=== PATIENT | male | born 1940 | race Caucasian/White ===

== ENCOUNTER 2018-10-31 20:03 | Observation (INO) ==
--- NOTE | 2018-10-31 20:48 | Emergency Department Note ---
Disposition Clinical Impression: Altered mental status Qualifiers: Altered mental status type: disorientation Qualified Code(s): R41.0 - Disorientation, unspecified UTI (urinary tract infection) Qualifiers: Urinary tract infection type: acute cystitis Hematuria presence: with hematuria Qualified Code(s): N30.01 - Acute cystitis with hematuria Disposition: Admitted As Inpatient Condition: Undetermined Forms: ED Satisfaction Letter Time of Disposition: 22:11 Altered Mental Status HPI - General Chief Complaint: ED Altered Mental Status Stated Complaint: altered mental status Time Seen by Provider: 10/31/18 20:08 Source: patient, EMS Mode of arrival: EMS Limitations: altered mental status Nursing Notes Reviewed: Yes Vital Signs Reviewed: Yes - History of Present Illness HPI Narrative: 78-year-old male arrives to the emergency department after being found wandering down [address] [facility]. Apparently the patient was going to see his recently in [place] and began walking down from [place]. The patient park his car somewhere and was found wandering. An elderly missing persons report was filed roughly 24 hours ago and the patient was found by law enforcement. The patient denies any specific complaints other than some burning when he urinates. The patient apparently self catheterizes and has been apparently reusing Cee catheters. The family is concerned about infection on him. In no obvious signs of trauma is a very poor historian and is only alert to person. Patient denies any other complaints at this time. He is resting comfortably in the room. - Related Data Allergies Allergy/AdvReac Type Severity Reaction Status Date / Time No Known Allergies Allergy Verified 10/31/18 20:12 All systems ED: reviewed and negative except as stated. Constitutional: Denies: fever, chills, weakness ENT ED: Denies: dysphagia Cardiovascular: Denies: chest pain Respiratory: Denies: dyspnea Gastrointestinal: Denies: abdominal pain, nausea, vomiting, diarrhea, constipation Genitourinary: Reports: dysuria, frequency. Denies: urgency, hematuria Musculoskeletal: Denies: back pain Integumentary: Denies: rash Neurological: Reports: confusion. Denies: headache Past Medical History - Past Medical History Attestation: Yes The following information was validated with the patient. Source: patient, old records reviewed Medical history: Reports: other Surgical history: Reports: non-contributory Psychiatric history: Reports: no psych history - Social History Smoking Status: Never smoker Smokeless Tobacco Status: No Alcohol use: Reports: none Drug use: Reports: none Physical Exam - General Limitations: altered mental status General appearance: alert, in no apparent distress - Head Head exam: atraumatic, normocephalic, normal inspection - Eye Eye exam: Present: normal appearance, PERRL, EOMI - ENT ENT exam: normal exam, normal oropharynx, mucous membranes moist - Neck Neck exam: Present: normal inspection, full ROM, trachea midline - Chest Chest inspection: Present: normal inspection, symmetric chest wall rise - Respiratory Respiratory exam: Present: normal lung sounds bilaterally - Cardiovascular Cardiovascular exam: Present: regular rate, normal rhythm, normal heart sounds - Abdominal Exam Abdominal exam: Present: soft, Non-Tender. Absent: tenderness, distention, guarding, rebound, rigidity - Extremities Exam Extremities exam: Present: normal inspection, full ROM, normal capillary refill. Absent: tenderness, pedal edema - Back Exam Back exam: Present: normal inspection, full ROM. Absent: tenderness - Neurological Exam Neurological exam: Present: alert - Expanded Neurological Exam Patient oriented to: Present: person Speech: Present: fluid speech Cranial nerves: EOM function (II, III, IV, ): Normal, facial sensation (V): Normal, facial palsy (VII): Normal Motor strength - LUE: 4/5 Motor strength - RUE: 4/5 Motor strength - LLE: 4/5 Motor strength - RLE: 4/5 Sensory exam upper extremity: light touch: Normal Sensory exam lower extremity: light touch: Normal Coma Scale Eye Opening: Spontaneous Coma Scale Motor Response: Obeys Commands Coma Scale Verbal Response: Confused Coma Scale Total: 14 - Skin Skin exam: Present: warm, dry, intact, normal color Course Vital Signs Temperature 98.1 F 10/31/18 20:13 Pulse Rate 83 10/31/18 20:13 Respiratory Rate 18 10/31/18 20:13 Blood Pressure 175/71 10/31/18 20:13 O2 Sat by Pulse Oximetry 97 10/31/18 20:13 Temperature 98.1 F 10/31/18 20:13 Pulse Rate 83 10/31/18 20:13 Respiratory Rate 18 10/31/18 20:13 Blood Pressure 175/71 10/31/18 20:13 O2 Sat by Pulse Oximetry 97 10/31/18 20:13 Oxygen Delivery Oxygen Delivery Room Air Altered Mental Status - MDM Narrative Medical decision making narrative: Patient's workup in the emergency department demonstrates findings consistent with a urinary tract infection. Given the patient's alteration in mentation and urinary tract infection and feels though this is likely the source. The patient had blood cultures drawn and was started on IV Rocephin. His vital signs remain stable here in the emergency department. The patient does not meet any sepsis criteria. The patient has been reusing his catheters per family in the room and I feel as though this is the source of his urinary tract infection. The patient was accepted hospitals by Dr. Bullock. - Lab Data Lab results reviewed: Yes I reviewed the patient's lab results. Result diagrams: 10/31/18 21:09 10/31/18 21: Lab Results 10/31/18 10/31/18 10/31/18 Range/Units 21:00 21:09 21:09 WBC 5.7 (4.3-11.1) K/mcL RBC 3.60 L (4.19-5.50) M/mcL Hgb 11.0 L (12.9-16.9) g/dL Hct 33.3 L (37.5-50.1) % MCV 92.5 (83.0-100.0) fL MCH 30.6 (28.0-33.3) pg MCHC 33.0 (31.6-35.5) g/dL RDW 12.8 (11.5-14.5) % Plt Count 239 (140-400) K/mcL MPV 9.8 (9.4-12.4) fL Immature Gran % 0.4 (0-4) % Seg Neutrophils % 66.0 % Lymphocytes % 19.6 % Monocytes % 13.5 % Eosinophils % 0.0 % Basophils % 0.5 % Neutrophils # 3.7 (1.6-8.9) K/mcL Lymphocytes # 1.1 (0.6-4.6) K/mcL Monocytes # 0.8 (0.0-1.3) K/mcL Eosinophils # 0.0 (0.0-0.6) K/mcL Basophils # 0.0 (0.0-0.2) K/mcL Sodium 143 (136-145) mEq/L Potassium 4.0 (3.5-5.1) mEq/L Chloride 111 H (98-107) mEq/L Carbon Dioxide 24 (23-29) mEq/L BUN 28 H (8-23) mg/dL Creatinine 1.57 H (0.70-1.30) mg/dL Est GFR ( Amer) 52 L (> 60) Est GFR (Non-Af Amer) 43 L (> 60) BUN/Creatinine Ratio 18 (6-26) Glucose 80 (70-105) mg/dL Calculated Osmolality 300 (280-300) Calcium 9.0 (8.6-10.3) mg/dL Total Bilirubin 0.8 (0.3-1.0) mg/dL Direct Bilirubin 0.1 (0.0-0.2) mg/dL Indirect Bilirubin 0.7 (0.0-1.2) mg/dL AST 26 (13-39) Units/L ALT 13 (7-52) Units/L Alkaline Phosphatase 57 (34-104) Units/L Ammonia (16-53) mcmol/L Creatine Kinase 1013 H (30-223) Units/L Serum Total Protein 6.5 (6.4-8.9) g/dL Albumin 3.6 (3.5-5.7) g/dL Globulin 2.9 (2.4-3.5) g/dL Albumin/Globulin Ratio 1.2 (1.1-2.2) Urine Color Yellow (Yellow) Urine Clarity Turbid A (Clear) Urine pH 7.5 (5.0-8.0) pH Units Ur Specific [place] 1.014 (1.010-1.025) Urine Protein >=300 H (Neg-Trace) mg/dL Urine Glucose (UA) Normal (Normal) mg/dL Urine Ketones Trace H (Negative) mg/dL Urine Blood Small H (Negative) Urine Nitrite Negative (Negative) Urine Bilirubin Negative (Negative) Urine Urobilinogen Normal (Normal) mg/dL Ur Leukocyte Esterase Large H (Negative) Urine Microscopic RBC Present (0-3) per hpf Urine Microscopic WBC TNTC H (0-3) per hpf Ur Squamous Epith Cells Many H (None-Few) per lpf Urine Bacteria Many H (None-Few) per hpf Hyaline Casts None Seen (None-Few) per lpf Ur Culture Indicated? YES A (NO) Salicylates < 2.5 L (15.0-30.0) mg/dL Acetaminophen < 10 L (10-20) mcg/mL Ethyl Alcohol < 10 (Less than 10) mg/dL 10/31/18 Range/Units 21:09 WBC (4.3-11.1) K/mcL RBC (4.19-5.50) M/mcL Hgb (12.9-16.9) g/dL Hct (37.5-50.1) % MCV (83.0-100.0) fL MCH (28.0-33.3) pg MCHC (31.6-35.5) g/dL RDW (11.5-14.5) % Plt Count (140-400) K/mcL MPV (9.4-12.4) fL Immature Gran % (0-4) % Seg Neutrophils % % Lymphocytes % % Monocytes % % Eosinophils % % Basophils % % Neutrophils # (1.6-8.9) K/mcL Lymphocytes # (0.6-4.6) K/mcL Monocytes # (0.0-1.3) K/mcL Eosinophils # (0.0-0.6) K/mcL Basophils # (0.0-0.2) K/mcL Sodium (136-145) mEq/L Potassium (3.5-5.1) mEq/L Chloride (98-107) mEq/L Carbon Dioxide (23-29) mEq/L BUN (8-23) mg/dL Creatinine (0.70-1.30) mg/dL Est GFR ( Amer) (> 60) Est GFR (Non-Af Amer) (> 60) BUN/Creatinine Ratio (6-26) Glucose (70-105) mg/dL Calculated Osmolality (280-300) Calcium (8.6-10.3) mg/dL Total Bilirubin (0.3-1.0) mg/dL Direct Bilirubin (0.0-0.2) mg/dL Indirect Bilirubin (0.0-1.2) mg/dL AST (13-39) Units/L ALT (7-52) Units/L Alkaline Phosphatase (34-104) Units/L Ammonia 27 (16-53) mcmol/L Creatine Kinase (30-223) Units/L Serum Total Protein (6.4-8.9) g/dL Albumin (3.5-5.7) g/dL Globulin (2.4-3.5) g/dL Albumin/Globulin Ratio (1.1-2.2) Urine Color (Yellow) Urine Clarity (Clear) Urine pH (5.0-8.0) pH Units Ur Specific [place] (1.010-1.025) Urine Protein (Neg-Trace) mg/dL Urine Glucose (UA) (Normal) mg/dL Urine Ketones (Negative) mg/dL Urine Blood (Negative) Urine Nitrite (Negative) Urine Bilirubin (Negative) Urine Urobilinogen (Normal) mg/dL Ur Leukocyte Esterase (Negative) Urine Microscopic RBC (0-3) per hpf Urine Microscopic WBC (0-3) per hpf Ur Squamous Epith Cells (None-Few) per lpf Urine Bacteria (None-Few) per hpf Hyaline Casts (None-Few) per lpf Ur Culture Indicated? (NO) Salicylates (15.0-30.0) mg/dL Acetaminophen (10-20) mcg/mL Ethyl Alcohol (Less than 10) mg/dL - Radiology Data Radiology results reviewed: Yes I reviewed the patient's radiology results. Cervical Spine CT 10/31/18 20:08 IMPRESSION: No acute abnormality of the cervical spine. D/ / Haile Seo MD / Haile Seo MD Interpreting Provider: Haile Seo MD Chest X-Ray 10/31/18 20:08 IMPRESSION: No acute process. D/ / Rohith Beck MD / Rohith Beck MD Interpreting Provider: Rohith Beck MD Head CT 10/31/18 20:08 IMPRESSION: No acute intracranial abnormality. Generalized cerebral atrophy and chronic small vessel white matter ischemic changes. D/ / Haile Seo MD / Haile Seo MD Interpreting Provider: Haile Seo MD - EKG Data EKG attestation: Yes I reviewed and interpreted this EKG. EKG results narrative: Heart rate 80 beats for minute. Normal sinus rhythm. No ST elevation or ST depression noted. No acute changes noted. TPA Checklist - LKW: 3-4.5 hrs Add. Warnings/Precautions Patient/family understanding: The patient/family members have been counseled and understood the risk, benefit, and alternatives of treatment.
[2018-10-31 21:21] LABS: Basophils % 0.5 %; Hematocrit 33.3 % (37.5-50.1); Immature Granulocytes % 0.4 % (0-4); Lymphocytes # 1.1 K/mcL (0.6-4.6); Lymphocytes % 19.6 %; Mean Corpuscular Hemoglobin 30.6 pg (28.0-33.3); Mean Corpuscular Volume 92.5 fL (83.0-100.0); Mean Platelet Volume 9.8 fL (9.4-12.4); Monocytes # 0.8 K/mcL (0.0-1.3); Monocytes % 13.5 %; Neutrophils # 3.7 K/mcL (1.6-8.9); Platelet Count 239 K/mcL (140-400); Red Cell Distribution Width 12.8 % (11.5-14.5); White Blood Count 5.7 K/mcL (4.3-11.1)
[2018-10-31 21:32] LABS: Bilirubin,Urine Negative (Negative); Blood,Urine Small (Negative); Clarity,Urine Turbid (Clear); Color,Urine Yellow (Yellow); Glucose,Urine (UA) Normal (Normal); Ketones,Urine Trace mg/dL (Negative); Leukocyte Esterase,Urine Large (Negative); Nitrite,Urine Negative (Negative); PH,Urine 7.5 pH Units (5.0-8.0); Protein,Urine >=300 mg/dL (Neg-Trace); Specific Gravity,Urine 1.014 (1.010-1.025); Urobilinogen,Urine Normal (Normal)
[2018-10-31 21:34] LABS: Bacteria,Urine Many per hpf (None-Few); Squamous Epithelial Cell,Urine Many per lpf (None-Few); WBC,Urine TNTC per hpf (0-3)
[2018-10-31 21:41] LABS: Acetaminophen < 10 mcg/mL (10-20); Alanine Aminotransferase 13 Units/L (7-52); Albumin 3.6 g/dL (3.5-5.7); Albumin/Globulin Ratio 1.2 (1.1-2.2); Alkaline Phosphatase 57 Units/L (34-104); Aspartate Amino Transferase 26 Units/L (13-39); BUN/Creatinine Ratio 18 (6-26); Bilirubin,Direct 0.1 mg/dL (0.0-0.2); Bilirubin,Indirect 0.7 mg/dL (0.0-1.2); Bilirubin,Total 0.8 mg/dL (0.3-1.0); Blood Urea Nitrogen 28 mg/dL (8-23); Carbon Dioxide 24 mEq/L (23-29); Chloride 111 mEq/L (98-107); Creatine Kinase 1013 Units/L (30-223); Ethanol < 10 mg/dL (Less than 10); Globulin 2.9 g/dL (2.4-3.5); Glucose 80 mg/dL (70-105); Osmolality,Calculated 300 (280-300); Salicylate < 2.5 mg/dL (15.0-30.0); Sodium 143 mEq/L (136-145); Total Protein 6.5 g/dL (6.4-8.9); eGFR For African Americans 52 (> 60); eGFR For Non-African Americans 43 (> 60)
[2018-10-31] MEDS ORDERED: 0.9 % Sodium Chloride 1,000 ML IVC ONE (21:42)
[2018-10-31 21:52] LABS: Hyaline Casts,Urine None Seen per lpf (None-Few); RBC,Urine Present per hpf (0-3)
[2018-10-31] MEDS ORDERED: cefTRIAXone 1,000 MG in Water for inj. (sterile) 20 ML 10 ML IVP ONE (21:53)
[2018-10-31] MEDS ORDERED: Acetaminophen 325 MG TABLET PO PRN (22:36)
--- NOTE | 2018-10-31 23:17 | Internal Med History&Physical ---
Date of Encounter: 10/31/18 Time of Encounter: 23:15 Internal Medicine - H&P: HPI Chief complaint: AMS Admitted From: Home Plans for Post Hospital Care: Home History of present illness: Manny Buitrago is a 78 year old man who reports having BPH, hypertension and hyperlipidemia who resides at a seniors residence in [place] and was last seen by his family member there at 1430hrs yesterday then later on they were notified that he had left in his car. A missing persons report was filed. He apparently was found by law enforcement wandering the highway in [place] this evening. His car was abandoned somewhere on route and he kept on walking. It is unclear what his motive was or destination. His family members were contacted and they came in to see him here. He denies headaches, chest pain, and shortness of breath but is notably confused and cannot understand how he got here. Lab work revealed a creatinine of 1.57 (unknown baseline) and CK >1000. His imaging studies were unrevealing. He is admitted for observation. Vitals: Reviewed General: Well-appearing, NAD Skin: Warm, dry HEENT: Dry mucous membranes. No conjunctivae pallor. Neck: No lymphadenopathy. No JVD. No carotid bruits. No palpable thyroid. Chest: Normal thoracic expansion. Normal breath sounds. Clear to auscultation. Heart: Normal S1 & S2; rhythmic. No rubs or murmurs. Abdomen: Non-distended, soft and non-tender to palpation. No peritoneal reaction. Extremities: No clubbing, cyanosis or edema. No calf tenderness. Normal distal pulses. Neurological: Awake, alert and oriented to person. No focal deficits. Psych: Affect appropriate. Assessment/Plan 1. Altered mental status: No signs of ischemic infarct present. Seems to be undergoing bereavement for his and that may have a component to play; pathologic grief. He seems to be back to baseline mental status but is slowly coming to terms with what went on and gaining more understanding. 2. Rhabdomyolysis: Mild. Likely secondary to his prolonged walking over the past day. May have a component of PHILOMENA as well. Will provide IVF for rehydration. 3. BPH: The patient self-caths intermittently due to retention and frequently develops UTIs. His UA is positive and he really does not have lower urinary tracts symptoms however given the transient AMS, would be prudent to give a short 3 day course of abx for cystitis. 4. HTN: Unknown home medications. Will monitor. Past Med Surg Social Fam HX - Past Medical History Medical history: hyperlipidemia, hypertension, other Psychiatric history: no psych history - Past Surgical History Surgical History: non-contributory - Social History Smoking Status: Never smoker Smokeless Tobacco Status: No Alcohol use: none Drug use: none Internal Medicine - H&P: Meds Allergy/AdvReac Type Severity Reaction Status Date / Time No Known Allergies Allergy Verified 10/31/18 20:12 All Systems PM: A 10-system review of systems was performed and is negative for pertinent findings except as documented above in the HPI. Family history reviewed and found non-contributory. - Constitutional Vitals: Temp Pulse Resp BP Pulse Ox 98.1 F 83 18 175/71 97 10/31/18 20:13 10/31/18 20:13 10/31/18 20:13 10/31/18 20:13 10/31/18 20:13 Exam: . Internal Med - H&P Results - Labs CBC & Chem 7: 10/31/18 21:09 10/31/18 21:09 Labs: Short CBC 10/31/18 Range/Units 21:09 WBC 5.7 (4.3-11.1) K/mcL Hgb 11.0 L (12.9-16.9) g/dL Hct 33.3 L (37.5-50.1) % Plt Count 239 (140-400) K/mcL Neutrophils # 3.7 (1.6-8.9) K/mcL BMP 10/31/18 21:09 Sodium 143 Potassium 4.0 Chloride 111 H Carbon Dioxide 24 BUN 28 H Creatinine 1.57 H Glucose 80 Calcium 9.0 Liver Function 10/31/18 Range/Units 21:09 Total Bilirubin 0.8 (0.3-1.0) mg/dL Direct Bilirubin 0.1 (0.0-0.2) mg/dL AST 26 (13-39) Units/L ALT 13 (7-52) Units/L Alkaline Phosphatase 57 (34-104) Units/L Albumin 3.6 (3.5-5.7) g/dL Urine 10/31/18 Range/Units 21:00 Urine Color Yellow (Yellow) Urine Clarity Turbid A (Clear) Urine pH 7.5 (5.0-8.0) pH Units Ur Specific [place] 1.014 (1.010-1.025) Urine Protein >=300 H (Neg-Trace) mg/dL Urine Glucose (UA) Normal (Normal) mg/dL - Impressions ITS Impressions Cervical Spine CT 10/31/18 20:08 IMPRESSION: No acute abnormality of the cervical spine. D/ / Haile Seo MD / Haile Seo MD Interpreting Provider: Haile Seo MD Chest X-Ray 10/31/18 20:08 IMPRESSION: No acute process. D/ / Rohith Beck MD / Rohith Beck MD Interpreting Provider: Rohith Beck MD Head CT 10/31/18 20:08 IMPRESSION: No acute intracranial abnormality. Generalized cerebral atrophy and chronic small vessel white matter ischemic changes. D/ / Haile Seo MD / Haile Seo MD Interpreting Provider: Haile Seo MD - Time Spent With Patient Total time spent is greater than 50% in coordination of care (as documented) at patient's floor/unit and/or counseling patient: Greater than 35 minutes
[2018-10-31 23:18] LABS: INR 1.1; Prothrombin Time 12.7 Seconds (9.4-12.1)
[2018-11-01] MEDS: 0.9 % Sodium Chloride 1,000 ML IVC SCH ×3 (00:04→18:01)
[2018-11-01 02:00] LABS: BUN/Creatinine Ratio 19 (6-26); Blood Urea Nitrogen 25 mg/dL (8-23); Calcium 8.2 mg/dL (8.6-10.3); Carbon Dioxide 22 mEq/L (23-29); Chloride 113 mEq/L (98-107); Creatine Kinase 1167 Units/L (30-223); Glucose 88 mg/dL (70-105); Magnesium 1.8 mg/dL (1.6-2.6); Osmolality,Calculated 296 (280-300); Phosphorous 2.5 mg/dL (2.7-4.5); Potassium 3.7 mEq/L (3.5-5.1); Sodium 141 mEq/L (136-145); eGFR For African Americans > 60 (> 60); eGFR For Non-African Americans 51 (> 60)
[2018-11-01] MEDS: *HR* Heparin 5,000 UNIT/ML VIAL SQ SCH ×2 (05:52→16:42)
--- NOTE | 2018-11-01 10:25 | Internal Med Progress Note ---
Hospitalist Progress Note - Encounter Date of Encounter: 11/01/18 Time of Encounter: 09:15 - Subjective Interval History: H&P reviewed. Pt with history of BPH and hypertension was admitted for AMS. He was found wandering the highway in [place]. Today he is able to tell me his name but not able to tell me where we are or why he is in the hospital. O therwise, no acute complaints except for intermittent dysuria and suprapubic discomfort - Exam Vitals: Temp Pulse Resp BP Pulse Ox 98.4 F 71 15 99/51 94 11/01/18 03:45 11/01/18 03:45 11/01/18 03:45 11/01/18 03:45 11/01/18 03:45 Exam: General: Alert and oriented to self only, not in acute distress. HEENT:pupils equal, round and reactive. Cardiovascular:Normal S1 & S2, No JVD. Pulse regular. Lungs: clear to auscultation, no wheezes/rales Abdomen:Soft, discomfort over suprapubic region Extremities:No deformity or swelling Neurological:Does not follow commands consistently for a reliable neuro exam but no facial droop and moves all 4 limbs spontaneously without difficulty - Assessment and Plan (1) Encephalopathy Current Visit: Yes Status: Acute Assessment and Plan: unclear etiology, ?UTI-related CT head -ve, ammonia -ve. No focal deficits noted on exam also has PHILOMENA vs CKD with mild rhabdomyolysis tx for UTI and rhabdomyolysis as below ?bereavement, psych consult placed overnight would try to clarify his baseline with the family members (2) UTI (urinary tract infection) Current Visit: Yes Status: Acute Assessment and Plan: continue ROcephin, follow up on urine culture if he continues to retain urine requiring straight cath, would insert palumbo catheter (3) Rhabdomyolysis Current Visit: Yes Status: Acute Assessment and Plan: continue IVF (4) PHILOMENA (acute kidney injury) Current Visit: Yes Status: Acute Assessment and Plan: unsure whether his elevated Cr represents PHILOMENA with rhabdomyolysis vs. CKD, slightly downtrended after IVF regardless continue IVF for now avoid nephrotoxins monitor I&Os (5) Urinary retention Current Visit: Yes Status: Acute Assessment and Plan: hx of underlying BPH, also has UTI in addition if he continues to require straight cath, would insert palumbo catheter - Time Spent with Patient Total time spent is greater than 50% in coordination of care (as documented) at patient's floor/unit and/or counseling patient: 25 - 35 minutes Plan of Care Discussed with: nurse Internal Medicine: Result - Labs CBC & Chem 7: 10/31/18 21:09 11/01/18 01:27 Labs: Short CBC 10/31/18 Range/Units 21:09 WBC 5.7 (4.3-11.1) K/mcL Hgb 11.0 L (12.9-16.9) g/dL Hct 33.3 L (37.5-50.1) % Plt Count 239 (140-400) K/mcL Neutrophils # 3.7 (1.6-8.9) K/mcL BMP 10/31/18 11/01/18 21:09 01:27 Sodium 143 141 Potassium 4.0 3.7 Chloride 111 H 113 H Carbon Dioxide 24 22 L BUN 28 H 25 H Creatinine 1.57 H 1.35 H Glucose 80 88 Calcium 9.0 8.2 L Liver Function 10/31/18 Range/Units 21:09 Total Bilirubin 0.8 (0.3-1.0) mg/dL Direct Bilirubin 0.1 (0.0-0.2) mg/dL AST 26 (13-39) Units/L ALT 13 (7-52) Units/L Alkaline Phosphatase 57 (34-104) Units/L Albumin 3.6 (3.5-5.7) g/dL Urine 10/31/18 Range/Units 21:00 Urine Color Yellow (Yellow) Urine Clarity Turbid A (Clear) Urine pH 7.5 (5.0-8.0) pH Units Ur Specific [place] 1.014 (1.010-1.025) Urine Protein >=300 H (Neg-Trace) mg/dL Urine Glucose (UA) Normal (Normal) mg/dL - ABG Interpretation ABG results: PT/INR, D-dimer PT 12.7 Seconds (9.4-12.1) H 10/31/18 22:36 - Impressions Impressions Cervical Spine CT 10/31/18 20:08 IMPRESSION: No acute abnormality of the cervical spine. D/ / Haile Seo MD / Haile Seo MD Interpreting Provider: Haile Seo MD Chest X-Ray 10/31/18 20:08 IMPRESSION: No acute process. D/ / Rohith Beck MD / Rohith Beck MD Interpreting Provider: Rohith Beck MD Head CT 10/31/18 20:08 IMPRESSION: No acute intracranial abnormality. Generalized cerebral atrophy and chronic small vessel white matter ischemic changes. D/ / Haile Seo MD / Haile Seo MD Interpreting Provider: Haile Seo MD Consult Discharge Plan - Plan [facility]errals[facility]Primary Care Provider[facility] - (2) UTI (urinary tract infection) Qualifiers: Urinary tract infection type: acute cystitis Hematuria presence: with hematuria Qualified Code(s): N30.01 - Acute cystitis with hematuria (3) Rhabdomyolysis Qualifiers: Rhabdomyolysis type: non-traumatic Qualified Code(s): M62.82 - Rhabdomyolysis
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
[2018-11-01] MEDS: cefTRIAXone 1,000 MG in Water for inj. (sterile) 20 ML 10 ML IVPB SCH (11:57)
--- NOTE | 2018-11-01 21:36 | Electrocardiograph Report ---
[address] [address] Test Date: 2018-10-31 Pat Name: Manny Buitrago Department: EXAM5 Room: 3A21 Gender: M [employer]: : [id number] Requested By: Jovon Drew Order Number: [id number] Reading MD: Andre Alexis Measurements Intervals [place] Rate: 80 P: 59 PA: 133 QRS: 68 QRSD: 88 T: 48 QT: 404 QTc: 466 Interpretive Statements Sinus rhythm with blocked PACs Borderline prolonged QT interval Electronically Signed On 11-01-2018 21:35:24 EDT by Andre Alexis
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
[2018-11-02] MEDS: 0.9 % Sodium Chloride 1,000 ML IVC SCH (02:12)
[2018-11-02 05:17] LABS: Basophils % 0.7 %; Hematocrit 30.4 % (37.5-50.1); Hemoglobin 9.7 g/dL (12.9-16.9); Immature Granulocytes % 0.3 % (0-4); Lymphocytes # 0.9 K/mcL (0.6-4.6); Lymphocytes % 31.3 %; Mean Corpuscular HGB Conc 31.9 g/dL (31.6-35.5); Mean Corpuscular Hemoglobin 30.6 pg (28.0-33.3); Mean Corpuscular Volume 95.9 fL (83.0-100.0); Mean Platelet Volume 10.1 fL (9.4-12.4); Monocytes # 0.3 K/mcL (0.0-1.3); Neutrophils # 1.6 K/mcL (1.6-8.9); Platelet Count 167 K/mcL (140-400); Red Blood Count 3.17 M/mcL (4.19-5.50); Red Cell Distribution Width 12.7 % (11.5-14.5); Segmented Neutrophils % 55.7 %; White Blood Count 2.9 K/mcL (4.3-11.1)
[2018-11-02] MEDS: *HR* Heparin 5,000 UNIT/ML VIAL SQ SCH (05:37)
[2018-11-02 05:39] LABS: BUN/Creatinine Ratio 14 (6-26); Blood Urea Nitrogen 13 mg/dL (8-23); Calcium 7.7 mg/dL (8.6-10.3); Carbon Dioxide 20 mEq/L (23-29); Chloride 115 mEq/L (98-107); Creatine Kinase 578 Units/L (30-223); Glucose 91 mg/dL (70-105); Osmolality,Calculated 292 (280-300); Potassium 3.6 mEq/L (3.5-5.1); Sodium 141 mEq/L (136-145); eGFR For African Americans > 60 (> 60); eGFR For Non-African Americans > 60 (> 60)
[2018-11-02 05:51] LABS: Thyroid Stimulating Hormone 0.738 mcIU/mL (0.340-5.600)
[2018-11-02] MEDS: cefTRIAXone 1,000 MG in Water for inj. (sterile) 20 ML 10 ML IVPB SCH (08:48)
--- NOTE | 2018-11-02 10:06 | Discharge Summary ---
- NOTES TO OUTPATIENT PROVIDER Notes to Outpatient Provider: Follow-up with urology as an outpatient for urinary retention. Orders not resulted at time of discharge: Pending orders 10/31/18 21:00 Culture,Urine [RM] Stat 10/31/18 22:35 Culture,Blood [BC] Stat Date of Encounter: 11/02/18 Time of Encounter: 07:45 - Discharge Diagnosis (1) Encephalopathy Priority: Primary Status: Acute (2) UTI (urinary tract infection) Priority: Secondary Status: Acute Qualifiers: Urinary tract infection type: acute cystitis Hematuria presence: with hematuria Qualified Code(s): N30.01 - Acute cystitis with hematuria (3) Rhabdomyolysis Priority: Secondary Status: Acute Qualifiers: Rhabdomyolysis type: non-traumatic Qualified Code(s): M62.82 - Rhabdomyolysis (4) PHILOMENA (acute kidney injury) Priority: Secondary Status: Acute (5) Urinary retention Priority: Secondary Status: Acute Hospital course: Mr. Buitrago is a 78 year old male with history of BPH and hypertension who was admitted for metabolic encephalopathy in the setting of complicated UTI with PHILOMENA, rhabdomyolysis, and urinary retention. Clinically improved with IVF, freque nt straight cath, and IV Rocephin. On the day of discharge, he was oriented x 3 and was able to tell me that his recently and he was brought to the hospital by the drilling inspector. He will be discharged home on a Cee catheter given frequent need for straight cath, 7 day course of abx, and outpatient follow up with URology for voiding trial. Discharge discussed with: patient, nurse, social work, case management - Time Spent with Patient Total time spent providing and/or coordinating discharge services: 28 mins - Discharge Medications Prescriptions: New Cefdinir [Omnicef] 300 mg PO BID 4 Days #8 capsule Continued [place]-3/Dha/Epa/Fish Oil [Fish Oil 1,000 mg Softgel] 1 cap PO BID Cholecalciferol (D-3) [Vitamin D] 1,000 unit PO DAILY Docusate [Colace] 100 mg PO HS Tamsulosin HCl [Flomax] 0.4 mg PO DAILY Home Medications: Cholecalciferol (D-3) [Vitamin D] 1,000 unit PO DAILY 11/01/18 [History] Docusate [Colace] 100 mg PO HS 11/01/18 [History] [place]-3/Dha/Epa/Fish Oil [Fish Oil 1,000 mg Softgel] 1 cap PO BID 11/01/18 [History] Tamsulosin HCl [Flomax] 0.4 mg PO DAILY 11/01/18 [History] Cefdinir [Omnicef] 300 mg PO BID 4 Days #8 capsule 11/02/18 [Rx] Allergies/Adverse Reactions: Allergy/AdvReac Type Severity Reaction Status Date / Time No Known Allergies Allergy Verified 10/31/18 20:12 Date of admission: 10/31/18 22:23 [facility] care physician: [facility] Consults: 10/31/18 22:39 Consult to Psychiatry [CONS] Routine Consulting Provider: Psychiatry Bambi Reason consult: Altered mental status 10/31/18 23:55 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 Cardiovascular:Normal S1 & S2, No JVD. Pulse regular. Lungs: clear to auscultation, no wheezes/rales Abdomen:Soft, discomfort over suprapubic region Extremities:No deformity or swelling Neurological: non-focal - Patient Status Disposition: Home Health Service Condition: Undetermined Functional capacity at discharge: independent ambulation Overall status at discharge: patient is progressing back to baseline - Discharge Instructions Instructions: Urinary Tract Infection in Men (DC) Follow Up With: [facility] [Primary Care Provider] - Frank Chaves MD [Partnered Physician] - - Diet and Activity Activity: resume usual activities as tolerated Diet: regular diet
--- NOTE | 2018-11-02 10:08 | Physician Discharge Referral ---
Home Health/Hosp Referral Info Transfer to: Home Health Provider in Charge Post Discharge: PCP - Diagnosis (1) Encephalopathy Priority: Primary Status: Acute (2) UTI (urinary tract infection) Priority: Secondary Status: Acute (3) Rhabdomyolysis Priority: Secondary Status: Acute (4) PHILOMENA (acute kidney injury) Priority: Secondary Status: Acute (5) Urinary retention Priority: Secondary Status: Acute - Respiratory Orders Smoking Cessation: Smoking cessation has been advised. For more information, call the [place] Tobacco Quit Line at 9-272-ZDBC-NOW. - Services Needed Following services are medically necessary services: Nursing, Home Health Aide, Physical Therapy, Occupational Therapy - Transfer Medications Prescriptions: Cefdinir [Omnicef] 300 mg PO BID 4 Days #8 capsule Home Medications: Cholecalciferol (D-3) [Vitamin D] 1,000 unit PO DAILY 11/01/18 [History] Docusate [Colace] 100 mg PO HS 11/01/18 [History] [place]-3/Dha/Epa/Fish Oil [Fish Oil 1,000 mg Softgel] 1 cap PO BID 11/01/18 [History] Tamsulosin HCl [Flomax] 0.4 mg PO DAILY 11/01/18 [History] Cefdinir [Omnicef] 300 mg PO BID 4 Days #8 capsule 11/02/18 [Rx] Allergies/Adverse Reactions: Allergy/AdvReac Type Severity Reaction Status Date / Time No Known Allergies Allergy Verified 10/31/18 20:12 Certification: Further, I certify that my clinical findings support that this patient is homebound (i.e. absences from home require considerable and taxing effort and are for medical reasons or christian services or infrequently or short duration when for other reasons) because: Homebound Reason: Patient requires assistance of a person or device to safely leave home Attestation: My signature below is to certify that this patient is under my care and that I, or nurse practitioner, or a physician's operational assistant working with me, has a [id number] encounter with this patient.
[2018-11-02 10:38] VITALS: BP 158/68
== END 2018-11-02 13:48 | disposition home health service (06) ==
LOC: EMEROOARM 20:03 → 3ANU 20:03 → SUATTDRO 22:23 → 3ANU 22:55
PROVIDERS: ADMIT Internal Medicine; ATTEND Internal Medicine